=== PATIENT | male | born 1995 | race Caucasian/White ===

== ENCOUNTER 2018-09-11 09:54 | Emergency (ER) | payer OTHER ==
[~2018-09-11] VITALS: Ht 172.7 cm; Wt 104.5 kg
[~2018-09-11 09:54] MED LIST: NOCURR
[2018-09-11] MEDS ORDERED: METHOCARBAMOL 500 MG TABLET PO ONE (12:30)
[2018-09-11] MEDS ORDERED: LIDOCAINE 5% TRANSDERMAL PATCH TD ONE (12:30)
[2018-09-11] MEDS ORDERED: IBUPROFEN 800 MG TABLET PO ONE (12:30)
[2018-09-11 14:03] VITALS: BP 138/79
== END 2018-09-11 14:05 | disposition home or self-care (01) ==
LOC: EMS 09:56
DX: M25.511 Pain in right shoulder (principal); R07.81 Pleurodynia; R03.0 Elevated blood-pressure reading, without diagnosis of hypertension; V43.52XA Car driver injured in collision with other type car in traffic accident, initial encounter; Y93.89 Activity, other specified; Y92.411 Interstate highway as the place of occurrence of the external cause; Y99.8 Other external cause status
CPT/HCPCS: 29105